=== PATIENT | female | born 1955 | race Two or more races ===

== ENCOUNTER 2019-06-11 06:40 | Day surgery (SDC) | payer OTHER ==
[~2019-06-11] VITALS: Ht 167.6 cm; Wt 88.2 kg
[~2019-06-11 06:40] MED LIST: AMLO5TAB9 PO; ATOR40TA28 PO; DOCU-275 PO; GABA-529 PO; GLYB5 PO; HYDR25TA PO; ISOS30TA6 PO; LEVO200 PO; LOSA1TAB2 PO; MECL-111 PO; METF-960 PO; NITR0.4T52 SL; PANT40TA25 PO; PIOG30TA10 PO
[2019-06-11] MEDS ORDERED: 0.9% SODIUM CHLORIDE 10 ML SYRINGE IVP PRN (07:00)
[2019-06-11] MEDS ORDERED: METOPROLOL TARTRATE 50 MG TABLET PO PRN (07:00)
[2019-06-11] MEDS ORDERED: METOPROLOL TARTRATE 50 MG TABLET ONE (07:29)
[2019-06-11 08:12] LABS: ANION GAP 6 mmol/L (8-16); CALCIUM, TOTAL 9.1 mg/dL (8.8-10.5); CARBON DIOXIDE 31 mmol/L (22-29); CHLORIDE 103 mmol/L (98-107); CREATININE 0.58 mg/dL (0.60-1.30); GLOMERULAR FILTR. RATE CALC > 60 mL/min (>60); GLUCOSE,RANDOM 149 mg/dL (70-110); POTASSIUM 3.5 mmol/L (3.5-5.1); SODIUM SERUM 140 mmol/L (136-145); UREA NITROGEN, BLOOD 10 mg/dL (7-18)
[2019-06-11] MEDS ORDERED: NITROGLYCERIN 400 MCG/SUBLINGUAL SPRAY 4.9 GM BOTTLE SL ONE ×2 (08:25→10:28)
[2019-06-11] MEDS ORDERED: METOPROLOL TARTRATE 5 MG/5 ML VIAL ONE ×2 (08:26→09:42)
[2019-06-11] MEDS ORDERED: IOVERSOL 350 MG/ML 150 ML VIAL ONE (08:55)
[2019-06-11] MEDS ORDERED: SODIUM CHLORIDE 0.9% 100 ML ONE ×2 (08:56→10:33)
[2019-06-11] MEDS ORDERED: IOVERSOL 350 MG/ML 100 ML VIAL ONE ×2 (08:56→10:33)
[2019-06-11] MEDS ORDERED: SODIUM CHLORIDE 0.9% 250 ML IV ONE (09:00)
[2019-06-11] MEDS ORDERED: METOPROLOL TARTRATE 5 MG/5 ML VIAL IVP ONE ×4 (09:15→10:27)
== END 2019-06-11 11:10 | disposition home or self-care (01) ==
LOC: SURGERY 06:40 → EDSTATUS 09:00 → SURGERY 11:10
PROVIDERS: ATTEND Internal Medicine Cardiovascular Disease
DX: I25.10 Atherosclerotic heart disease of native coronary artery without angina pectoris (principal); R07.9 Chest pain, unspecified; I11.9 Hypertensive heart disease without heart failure; E11.9 Type 2 diabetes mellitus without complications; E05.90 Thyrotoxicosis, unspecified without thyrotoxic crisis or storm; Z79.899 Other long term (current) drug therapy; Z90.49 Acquired absence of other specified parts of digestive tract; Z98.890 Other specified postprocedural states
CPT/HCPCS: 36415; 75574; 80048; 93005; J3490; J7050; Q9967

== ENCOUNTER 2021-10-15 10:10 | Emergency (ER) | payer OTHER ==
[~2021-10-15] VITALS: Ht 162.6 cm; Wt 83.6 kg
[~2021-10-15 10:10] MED LIST changes: +AMLO-257 PO; -AMLO5TAB9 PO; +DOCU-270 PO; -DOCU-275 PO; -GABA-529 PO; -GLYB5 PO; +GLYB5TAB10 PO; -HYDR25TA PO; +HYDR25TA2 PO; -ISOS30TA6 PO; +ISOS30TA92 PO; -MECL-111 PO; +MECL-160 PO; +METF-1211 PO; -METF-960 PO; +PANT-31 PO; -PANT40TA25 PO
[2021-10-15 11:31] LABS: BASOPHILS % (AUTO) 0.8 % (0.0-2.0); EOSINOPHILS % (AUTO) 2.2 % (1.0-6.0); HEMATOCRIT 34.7 % (36-46); HEMOGLOBIN 11.5 g/dL (12.0-16.0); LYMPHOCYTES # (AUTO) 1.3 K/uL (1.0-4.8); LYMPHOCYTES % (AUTO) 24.6 % (22.0-44.0); MEAN CORPUSCULAR HEMOGLOBIN 28.5 pg (26.0-34.0); MEAN CORPUSCULAR HGB CONC 33.2 G/dL (31.0-37.0); MEAN CORPUSCULAR VOLUME 86 fL (80-100); MONOCYTES # (AUTO) 0.4 K/uL (0.1-1.0); MONOCYTES % (AUTO) 7.8 % (2.0-9.0); NEUTROPHILS # (AUTO) 3.5 K/uL (1.8-7.7); NEUTROPHILS % (AUTO) 64.6 % (40.0-70.0); PLATELET COUNT (AUTO) 199 K/uL (150-450); RED BLOOD CELL COUNT(AUTO) 4.04 MIL/uL (4.00-5.20); RED CELL DISTRIBUTION WIDTH 13.9 % (11.5-14.5)
[2021-10-15 11:41] LABS: ANION GAP 6 mmol/L (8-16); CALCIUM, TOTAL 8.9 mg/dL (8.8-10.5); CARBON DIOXIDE 28 mmol/L (22-29); CHLORIDE 101 mmol/L (98-107); CREATININE 0.42 mg/dL (0.60-1.30); GLUCOSE,RANDOM 198 mg/dL (70-110); POTASSIUM 3.9 mmol/L (3.5-5.1); SODIUM SERUM 135 mmol/L (136-145); UREA NITROGEN, BLOOD 13 mg/dL (7-18)
[2021-10-15 11:43] LABS: GLOMERULAR FILTR. RATE CALC > 60 mL/min (>60)
[2021-10-15 11:47] LABS: ALANINE AMINOTRANSFERASE 21 U/L (12-78); ALBUMIN 3.7 g/dL (3.4-5.0); ALKALINE PHOSPHATASE 91 U/L (46-116); ASPARTATE AMINOTRANSFERASE 16 U/L (15-37); BILIRUBIN,TOTAL 0.4 mg/dL (0.1-1.0)
[2021-10-15 15:11] VITALS: BP 137/65
== END 2021-10-15 15:13 | disposition home or self-care (01) ==
LOC: EMS 10:41
DX: S09.90XA Unspecified injury of head, initial encounter (principal); I10 Essential (primary) hypertension; E78.00 Pure hypercholesterolemia, unspecified; E11.9 Type 2 diabetes mellitus without complications; Z79.84 Long term (current) use of oral hypoglycemic drugs; Z79.899 Other long term (current) drug therapy; W18.39XA Other fall on same level, initial encounter; Y93.89 Activity, other specified; Y92.89 Other specified places as the place of occurrence of the external cause; Y99.8 Other external cause status
CPT/HCPCS: 70450; 80053; 85025; 99284